=== PATIENT | male | born 1930 | race Caucasian/White ===

== ENCOUNTER 2017-10-15 07:28 | Inpatient (IN) ==
[2017-10-15] MEDS ORDERED: Pantoprazole 40 MG VIAL IVP ONE (07:40)
[2017-10-15] MEDS ORDERED: Aspirin 81 MG TAB.CHEW PO ONE (07:40)
[2017-10-15] MEDS ORDERED: 0.9 % Sodium Chloride 500 ML IVC ONE (07:40)
[2017-10-15] MEDS ORDERED: Nitroglycerin 0.4 MG TAB.SUBL SL ONE (07:40)
[2017-10-15] MEDS ORDERED: GI Cocktail 40 ML EACH PO ONE (07:40)
[2017-10-15] MEDS ORDERED: Ondansetron 4 MG/2 ML VIAL IVP ONE (07:40)
--- NOTE | 2017-10-15 08:18 | Emergency Department Note ---
Disposition Clinical Impression: Choledocholithiasis Pancreatitis Qualifiers: Chronicity: acute Pancreatitis type: biliary Acute pancreatitis complication: unspecified Qualified Code(s): K85.10 - Biliary acute pancreatitis without necrosis or infection Abdominal pain Qualifiers: Abdominal location: right upper quadrant Qualified Code(s): R10.11 - Right upper quadrant pain Disposition: Admitted As Inpatient Condition: Fair Referrals: Francy Martinez MD [Primary Care Provider] - Forms: ED Satisfaction Letter, Work/School Release General Adult HPI - General Chief complaint: ED Abdominal Pain Stated complaint: abd pain Time Seen by Provider: 10/15/17 07:35 Source: patient, family Limitations: no limitations Nursing Notes Reviewed: Yes Vital Signs Reviewed: Yes - History of Present Illness Pain Scale: 8 - Related Data Home Medications Medication Instructions Recorded Confirmed Aspirin [Lo-Dose Aspirin EC] 81 mg PO DAILY 10/15/17 10/15/17 Atorvastatin [Lipitor] 40 mg PO HS 10/15/17 10/15/17 Metoprolol [Lopressor] 25 mg PO DAILY 10/15/17 10/15/17 Allergies Allergy/AdvReac Type Severity Reaction Status Date / Time No Known Allergies Allergy Verified 10/15/17 07:28 Past Medical History - Past Medical History Medical history: Reports: cancer, hyperlipidemia, hypertension, myocardial infarction, renal disease, other Psychiatric history: Reports: no psych history - Social History Smoking Status: Never smoker Smokeless Tobacco Status: No Alcohol use: Reports: none Drug use: Reports: none Physical Exam - General Limitations: no limitations General appearance: alert, in no apparent distress Course Vital Signs Temperature 97.8 F 10/15/17 07:29 Pulse Rate 85 10/15/17 07:29 Respiratory Rate 16 10/15/17 07:29 Blood Pressure 170/87 10/15/17 07:29 O2 Sat by Pulse Oximetry 98 10/15/17 07:29 Temperature 97.8 F 10/15/17 07:29 Pulse Rate 70 10/15/17 09:59 Respiratory Rate 16 10/15/17 09:59 Blood Pressure 129/64 10/15/17 09:59 O2 Sat by Pulse Oximetry 98 10/15/17 09:59 Oxygen Delivery Oxygen Delivery Room Air Medical Decision Making - MDM Narrative Medical decision making narrative: This documentation is done with the assistance of Dragon dictation. There may be inaccuracies in satellite manager or spelling and typographical errors. I have personally performed a face to face evaluation on this patient. I have reviewed and agree with the care plan. History and Exam by me shows: Patient was seen by Fallon Galaviz, the PA, agree with her evaluation and management plan and supervised the care of the patient's stay. Patient has epigastric pain which is resolved he did not fill it went up to his chest he said no neck or back or arm pain. Nonsurgical abdomen no tenderness good pulses distally. Radial cardiac workup and then reassess. He may need admission. He is in agreement with this plan. Chest X-Ray 10/15/17 07:40 IMPRESSION: 1. No acute cardiopulmonary disease. 2. COPD. 3. Status post CABG. D/ / Dalila Dunn MD / Dalila Dunn MD Interpreting Provider: Dalila Dunn MD 0911 hrs.: Troponin is negative. We will discuss with him about admission. 1015 hrs.: Due to his elevated LFTs. I have dedicated OF HIS LIVER AND GALLBLADDER. Chest X-Ray 10/15/17 07:40 IMPRESSION: 1. No acute cardiopulmonary disease. 2. COPD. 3. Status post CABG. D/ / 10/15/2017 09:25:36 Dalila Dunn MD / remy Interpreting Provider: Dalila Dunn MD Gallbladder Ultrasound 10/15/17 09:36 IMPRESSION: 1. Mild prominence of the common bile duct up to 6 mm. An echogenic focus is identified within the duct, possibly representing choledocholithiasis. Consider further evaluation with dedicated MRCP if there is clinical concern or laboratory evidence of biliary obstruction. 2. Cholelithiasis without sonographic evidence of acute cholecystitis. 3. Hepatic steatosis. 4. Pancreas is obscured by overlying bowel gas. D/ / Dalila Dunn MD / Dalila Dunn MD Interpreting Provider: Dalila Dunn MD 1246 hrs.: We will speak to hospitalists onto bring him in the hospital and GI also. Patient's in agreement this plan. 1251 hrs.: GI is not on-call this weekend. Also speak with surgery they may not want to take the patient without GIs coverage. And so we will need to transfer to [place]. Waiting on for call back from 1259 hrs.: Spoke with Dr. Hale who is on for GI, he said he be happy to see the patient; calling hospitalist back for admission. 1302 hrs.: Hospitalist who accepted patient to go ahead and consult GI. Consults are placed. - Lab Data Result diagrams: 10/15/17 08:11 10/15/17 08:11 Lab Results 10/15/17 10/15/17 10/15/17 Range/Units 08:11 08:11 08:11 WBC (4.3-11.1) K/mcL RBC (4.19-5.50) M/mcL Hgb (12.9-16.9) g/dL Hct (37.5-50.1) % MCV (83.0-100.0) fL MCH (28.0-33.3) pg MCHC (31.6-35.5) g/dL RDW (11.5-14.5) % Plt Count (140-400) K/mcL MPV (9.4-12.4) fL Immature Gran % (0-4) % Seg Neutrophils % % Lymphocytes % % Monocytes % % Eosinophils % % Basophils % % Neutrophils # (1.6-8.9) K/mcL Lymphocytes # (0.6-4.6) K/mcL Monocytes # (0.0-1.3) K/mcL Eosinophils # (0.0-0.6) K/mcL Basophils # (0.0-0.2) K/mcL PT 11.3 (9.4-12.1) Seconds INR 1.1 APTT 29.5 (26.0-36.0) Seconds Sodium 139 (136-145) mEq/L Potassium 4.4 (3.5-5.1) mEq/L Chloride 105 (98-107) mEq/L Carbon Dioxide 29 (23-29) mEq/L BUN 15 (8-23) mg/dL Creatinine 0.81 (0.70-1.30) mg/dL Est GFR ( Amer) > 60 (> 60) Est GFR (Non-Af Amer) > 60 (> 60) BUN/Creatinine Ratio 19 (6-26) Glucose 131 H (70-105) mg/dL Calculated Osmolality 291 (280-300) Calcium 9.4 (8.6-10.3) mg/dL Total Bilirubin 1.5 H (0.3-1.0) mg/dL AST 279 H (13-39) Units/L ALT 228 H (7-52) Units/L Alkaline Phosphatase 80 (34-104) Units/L Troponin I (< 0.04) ng/mL Serum Total Protein 7.3 (6.4-8.9) g/dL Albumin 4.1 (3.5-5.7) g/dL Globulin 3.2 (2.4-3.5) g/dL Albumin/Globulin Ratio 1.3 (1.1-2.2) Lipase 1543 H (11-82) Units/L 10/15/17 10/15/17 Range/Units 08:11 08:11 WBC 7.5 (4.3-11.1) K/mcL RBC 4.60 (4.19-5.50) M/mcL Hgb 14.5 (12.9-16.9) g/dL Hct 43.8 (37.5-50.1) % MCV 95.2 (83.0-100.0) fL MCH 31.5 (28.0-33.3) pg MCHC 33.1 (31.6-35.5) g/dL RDW 13.6 (11.5-14.5) % Plt Count 158 (140-400) K/mcL MPV 9.2 L (9.4-12.4) fL Immature Gran % 0.1 (0-4) % Seg Neutrophils % 79.9 % Lymphocytes % 8.2 % Monocytes % 5.6 % Eosinophils % 5.8 % Basophils % 0.4 % Neutrophils # 6.0 (1.6-8.9) K/mcL Lymphocytes # 0.6 (0.6-4.6) K/mcL Monocytes # 0.4 (0.0-1.3) K/mcL Eosinophils # 0.4 (0.0-0.6) K/mcL Basophils # 0.0 (0.0-0.2) K/mcL PT (9.4-12.1) Seconds INR APTT (26.0-36.0) Seconds Sodium (136-145) mEq/L Potassium (3.5-5.1) mEq/L Chloride (98-107) mEq/L Carbon Dioxide (23-29) mEq/L BUN (8-23) mg/dL Creatinine (0.70-1.30) mg/dL Est GFR ( Amer) (> 60) Est GFR (Non-Af Amer) (> 60) BUN/Creatinine Ratio (6-26) Glucose (70-105) mg/dL Calculated Osmolality (280-300) Calcium (8.6-10.3) mg/dL Total Bilirubin (0.3-1.0) mg/dL AST (13-39) Units/L ALT (7-52) Units/L Alkaline Phosphatase (34-104) Units/L Troponin I < 0.03 (< 0.04) ng/mL Serum Total Protein (6.4-8.9) g/dL Albumin (3.5-5.7) g/dL Globulin (2.4-3.5) g/dL Albumin/Globulin Ratio (1.1-2.2) Lipase (11-82) Units/L
[2017-10-15 08:23] LABS: Basophils % 0.4 %; Eosinophils # 0.4 K/mcL (0.0-0.6); Eosinophils % 5.8 %; Hematocrit 43.8 % (37.5-50.1); Hemoglobin 14.5 g/dL (12.9-16.9); Immature Granulocytes % 0.1 % (0-4); Lymphocytes # 0.6 K/mcL (0.6-4.6); Lymphocytes % 8.2 %; Mean Corpuscular HGB Conc 33.1 g/dL (31.6-35.5); Mean Corpuscular Hemoglobin 31.5 pg (28.0-33.3); Mean Corpuscular Volume 95.2 fL (83.0-100.0); Mean Platelet Volume 9.2 fL (9.4-12.4); Monocytes # 0.4 K/mcL (0.0-1.3); Monocytes % 5.6 %; Platelet Count 158 K/mcL (140-400); Red Cell Distribution Width 13.6 % (11.5-14.5); Segmented Neutrophils % 79.9 %
[2017-10-15 08:28] LABS: INR 1.1; Prothrombin Time 11.3 Seconds (9.4-12.1)
[2017-10-15 08:31] LABS: Activated Partial Thrombo Time 29.5 Seconds (26.0-36.0)
[2017-10-15 08:59] LABS: Alanine Aminotransferase 228 Units/L (7-52); Albumin 4.1 g/dL (3.5-5.7); Albumin/Globulin Ratio 1.3 (1.1-2.2); Alkaline Phosphatase 80 Units/L (34-104); Aspartate Amino Transferase 279 Units/L (13-39); BUN/Creatinine Ratio 19 (6-26); Bilirubin,Total 1.5 mg/dL (0.3-1.0); Blood Urea Nitrogen 15 mg/dL (8-23); Calcium 9.4 mg/dL (8.6-10.3); Carbon Dioxide 29 mEq/L (23-29); Chloride 105 mEq/L (98-107); Globulin 3.2 g/dL (2.4-3.5); Glucose 131 mg/dL (70-105); Osmolality,Calculated 291 (280-300); Potassium 4.4 mEq/L (3.5-5.1); Sodium 139 mEq/L (136-145); Total Protein 7.3 g/dL (6.4-8.9); eGFR For African Americans > 60 (> 60); eGFR For Non-African Americans > 60 (> 60)
--- NOTE | 2017-10-15 09:42 | Emergency Department Note ---
Disposition Clinical Impression: Pancreatitis Qualifiers: Chronicity: acute Pancreatitis type: biliary Acute pancreatitis complication: unspecified Qualified Code(s): K85.10 - Biliary acute pancreatitis without necrosis or infection Disposition: Admitted As Inpatient Condition: Fair Referrals: Francy Martinez MD [Primary Care Provider] - Forms: ED Satisfaction Letter, Work/School Release Abdominal Pain HPI - General Chief Complaint: ED Abdominal Pain Stated Complaint: abd pain Time Seen by Provider: 10/15/17 07:35 Source: patient, family Mode of arrival: private vehicle Limitations: no limitations Nursing Notes Reviewed: Yes Vital Signs Reviewed: Yes - History of Present Illness Pt Subjective Complaint: abdominal pain Onset (ago): hour(s) Consistency: constant, Improving Location: epigastric Pain Severity: moderate, severe Pain Scale: 8 Quality: stabbing, sharp, burning Radiation: chest Migration to: no migration Improves with: other ("Time") Worsens with: nothing Context: other (Unknown) Associated symptoms: Reports: nausea. Denies: vomiting ("Wanted to vomit but couldn't"), diarrhea, fever, chills, constipation, dysuria, hematemesis, hematochezia, melena, hematuria, anorexia, syncope Treatments prior to arrival: none - Related Data Home Medications Medication Instructions Recorded Confirmed Aspirin [Lo-Dose Aspirin EC] 81 mg PO DAILY 10/15/17 10/15/17 Atorvastatin [Lipitor] 40 mg PO HS 10/15/17 10/15/17 Metoprolol [Lopressor] 25 mg PO DAILY 10/15/17 10/15/17 Allergies Allergy/AdvReac Type Severity Reaction Status Date / Time No Known Allergies Allergy Verified 10/15/17 07:28 All systems ED: reviewed and negative except as stated. Review of Systems: As Per HPI Constitutional: Denies: fever, chills, weakness Cardiovascular: Denies: chest pain, palpitations Respiratory: Denies: cough, dyspnea, wheezes Gastrointestinal: Reports: as per HPI, abdominal pain, nausea. Denies: vomiting , diarrhea, constipation, hematemesis, melena, hematochezia Genitourinary: Denies: dysuria Musculoskeletal: Denies: back pain, joint swelling, arthralgia Integumentary: Denies: rash Neurological: Denies: headache, weakness, confusion Endocrine: Denies: fatigue Hematological/Lymphatic: Denies: easy bleeding, easy bruising Abdominal Pain PMH - Past Medical History Medical history: Reports: cancer, hyperlipidemia, hypertension, myocardial infarction, renal disease, other Male Surgical History: Reports: coronary bypass (CABG), other Psychiatric history: Reports: no psych history - Social History Smoking status: Never smoker Alcohol use: Reports: none Drug use: Reports: none Physical Exam - General Limitations: no limitations General appearance: alert, in no apparent distress - Head Head exam: atraumatic, normocephalic, normal inspection - Eye Eye exam: Present: normal appearance, PERRL. Absent: scleral icterus, conjunctival injection, periorbital swelling - ENT ENT exam: mucous membranes moist - Neck Neck exam: Present: normal inspection, full ROM, trachea midline. Absent: meningismus - Chest Chest inspection: Present: normal inspection - Respiratory Respiratory exam: Present: normal lung sounds bilaterally. Absent: respiratory distress, wheezes, stridor, accessory muscle use - Cardiovascular Cardiovascular exam: Present: regular rate, normal rhythm - Abdominal Exam Abdominal exam: Present: soft, tenderness, normal bowel sounds. Absent: distention, guarding, rebound, rigidity, organomegaly, ascites, mass, pulsatile mass Abdominal tenderness: Present: RUQ, mild - Extremities Exam Extremities exam: Present: normal inspection, normal capillary refill. Absent: pedal edema - Neurological Exam Neurological exam: Present: alert, oriented X3, CN II-XII intact, normal gait - Psychiatric Psychiatric exam: Present: normal affect, normal mood - Skin Skin exam: Present: warm, dry, intact, normal color Course Course Narrative: Patient presents from home with family for evaluation of epigastric pain and nausea since last night. He denies chest pain, trouble breathing, fever, chills , vomiting, or any bowel complaints. He states that the pain has "eased up a lot " since arriving here. He denies recent changes in medications or activity. On exam he is hypertensive, afebrile, heart rate normal. Abdomen is soft, non- distended with mild tenderness in the RUQ. No guarding or rebound tenderness. EKG, labs and meds have been ordered. Patient NPO EKG shows normal sinus rhythm with anteroseptal MS of indeterminate age; T-wave inversions in V1 and V2. Labs show a normal troponin, elevated LFT's and T-bili, otherwise normal. Meds helped relieve remaining discomfort and nausea. U/S ordered. Case discussed with Dr. Iqbal. He has had face to face time with the patient and agrees with the assessment and plan. Ddx: ACS, Gastritis, pancreatitis, pneumonia, enteritis, colitis. Troponin is normal. CXR normal. LFT's and lipase elevated. RUQ U/S ordered. Patient is pain free. RUQ u/s shows choledocolithiasis. Hospitalist paged. Dr. Finn requests that Dr. Hale be consulted. If Dr. Hale will come in to do the ERCP, then patient can stay here. If not, patient will need to be transferred. Vital Signs Temperature 97.8 F 10/15/17 07:29 Pulse Rate 85 10/15/17 07:29 Respiratory Rate 16 10/15/17 07:29 Blood Pressure 170/87 10/15/17 07:29 O2 Sat by Pulse Oximetry 98 10/15/17 07:29 Temperature 97.8 F 10/15/17 07:29 Pulse Rate 20 10/15/17 08:53 Respiratory Rate 12 10/15/17 08:53 Blood Pressure 128/69 10/15/17 08:53 O2 Sat by Pulse Oximetry 95 10/15/17 08:53 Oxygen Delivery Oxygen Delivery Room Air Abdominal Pain - Lab Data Result diagrams: 10/15/17 08:11 10/15/17 08:11 Lab Results 10/15/17 10/15/17 10/15/17 Range/Units 08:11 08:11 08:11 WBC 7.5 (4.3-11.1) K/mcL RBC 4.60 (4.19-5.50) M/mcL Hgb 14.5 (12.9-16.9) g/dL Hct 43.8 (37.5-50.1) % MCV 95.2 (83.0-100.0) fL MCH 31.5 (28.0-33.3) pg MCHC 33.1 (31.6-35.5) g/dL RDW 13.6 (11.5-14.5) % Plt Count 158 (140-400) K/mcL MPV 9.2 L (9.4-12.4) fL Immature Gran % 0.1 (0-4) % Seg Neutrophils % 79.9 % Lymphocytes % 8.2 % Monocytes % 5.6 % Eosinophils % 5.8 % Basophils % 0.4 % Neutrophils # 6.0 (1.6-8.9) K/mcL Lymphocytes # 0.6 (0.6-4.6) K/mcL Monocytes # 0.4 (0.0-1.3) K/mcL Eosinophils # 0.4 (0.0-0.6) K/mcL Basophils # 0.0 (0.0-0.2) K/mcL PT 11.3 (9.4-12.1) Seconds INR 1.1 APTT 29.5 (26.0-36.0) Seconds Sodium 139 (136-145) mEq/L Potassium 4.4 (3.5-5.1) mEq/L Chloride 105 (98-107) mEq/L Carbon Dioxide 29 (23-29) mEq/L BUN 15 (8-23) mg/dL Creatinine 0.81 (0.70-1.30) mg/dL Est GFR ( Amer) > 60 (> 60) Est GFR (Non-Af Amer) > 60 (> 60) BUN/Creatinine Ratio 19 (6-26) Glucose 131 H (70-105) mg/dL Calculated Osmolality 291 (280-300) Calcium 9.4 (8.6-10.3) mg/dL Total Bilirubin 1.5 H (0.3-1.0) mg/dL AST 279 H (13-39) Units/L ALT 228 H (7-52) Units/L Alkaline Phosphatase 80 (34-104) Units/L Troponin I (< 0.04) ng/mL Serum Total Protein 7.3 (6.4-8.9) g/dL Albumin 4.1 (3.5-5.7) g/dL Globulin 3.2 (2.4-3.5) g/dL Albumin/Globulin Ratio 1.3 (1.1-2.2) 10/15/17 Range/Units 08:11 WBC (4.3-11.1) K/mcL RBC (4.19-5.50) M/mcL Hgb (12.9-16.9) g/dL Hct (37.5-50.1) % MCV (83.0-100.0) fL MCH (28.0-33.3) pg MCHC (31.6-35.5) g/dL RDW (11.5-14.5) % Plt Count (140-400) K/mcL MPV (9.4-12.4) fL Immature Gran % (0-4) % Seg Neutrophils % % Lymphocytes % % Monocytes % % Eosinophils % % Basophils % % Neutrophils # (1.6-8.9) K/mcL Lymphocytes # (0.6-4.6) K/mcL Monocytes # (0.0-1.3) K/mcL Eosinophils # (0.0-0.6) K/mcL Basophils # (0.0-0.2) K/mcL PT (9.4-12.1) Seconds INR APTT (26.0-36.0) Seconds Sodium (136-145) mEq/L Potassium (3.5-5.1) mEq/L Chloride (98-107) mEq/L Carbon Dioxide (23-29) mEq/L BUN (8-23) mg/dL Creatinine (0.70-1.30) mg/dL Est GFR ( Amer) (> 60) Est GFR (Non-Af Amer) (> 60) BUN/Creatinine Ratio (6-26) Glucose (70-105) mg/dL Calculated Osmolality (280-300) Calcium (8.6-10.3) mg/dL Total Bilirubin (0.3-1.0) mg/dL AST (13-39) Units/L ALT (7-52) Units/L Alkaline Phosphatase (34-104) Units/L Troponin I < 0.03 (< 0.04) ng/mL Serum Total Protein (6.4-8.9) g/dL Albumin (3.5-5.7) g/dL Globulin (2.4-3.5) g/dL Albumin/Globulin Ratio (1.1-2.2)
[2017-10-15] MEDS ORDERED: *HR* FentaNYL (PF) 100 MCG/2 ML VIAL IVP PRN (13:09)
--- NOTE | 2017-10-15 13:16 | Internal Med History&Physical ---
Date of Encounter: 10/15/17 Time of Encounter: 12:50 Assessment and Plan (1) Abdominal pain Current visit: Yes Status: Acute Secondary to choledocholithiasis and acute GS pancreatitis Keep NPO Continue Fantanyl and Toradol Continue IVFs (NS @ 125 ml/hr) Empirically start Unasyn GI, Dr. Hale, was called by ER attending and per report will come in to see him today. Surgery was also called by ER to discuss case. If emmergent surgery needed we will call back and officially consult Hemodynamically stable VSS Qualifiers: Abdominal location: right upper quadrant Qualified Code(s): R10.11 - Right upper quadrant pain (2) Choledocholithiasis Current visit: Yes Status: Acute U/S shows possible stone in CBD with associated elevated liver and pancreatic enzymes. GI called and he will likely need an ERCP (3) Pancreatitis Current visit: Yes Status: Acute Continue NPO Continue current pain mgt GI called Possible ERCP today Qualifiers: Chronicity: acute Pancreatitis type: biliary Acute pancreatitis complication: unspecified Qualified Code(s): K85.10 - Biliary acute pancreatitis without necrosis or infection (4) CAD (coronary artery disease) Current visit: No Status: Chronic Continue aspirin Hold statin secondary to elevated liver enymes Continue BB Qualifiers: Coronary Disease-Associated Artery/Lesion type: [place] artery [place] vs. transplanted heart: [place] heart Associated angina: without angina Qualified Code(s): I25.10 - Atherosclerotic heart disease of [place] coronary artery without angina pectoris Internal Medicine - H&P: HPI Chief complaint: Abdominal pain History of present illness: Relatively healthy 87 yr old man with PMH of CAD s/p 3vCABG, COPD and HTN who presnted in the ER this am c.o RUQ and epigastric abdominal pain with Nausea nut no vomiting. He states that he had a spicy meal last evening and woke up with the pain described above. His liver and pancreatic enzymes are significantly elevated and a RUQ U/S shows what appears to be a possible stone in the CBD. There is no evidence of acute cholecystitis. His symptoms are well controlled now and he is hemodynamically stable. He will be admitted for choledocholithiasis and likely GS pancreatits. GI and Surgery were both called by the ER attending, GI will see him today. Past Med Surg Social Fam HX - Past Medical History Medical history: cancer, hyperlipidemia, hypertension, myocardial infarction, renal disease, other Psychiatric history: no psych history - Social History Smoking Status: Never smoker Smokeless Tobacco Status: No Alcohol use: none Drug use: none Internal Medicine - H&P: Meds Aspirin [Lo-Dose Aspirin EC] 81 mg PO DAILY 10/15/17 [History] Atorvastatin [Lipitor] 40 mg PO HS 10/15/17 [History] Metoprolol [Lopressor] 25 mg PO DAILY 10/15/17 [History] 3 Allergy/AdvReac Type Severity Reaction Status Date / Time No Known Allergies Allergy Verified 10/15/17 07:28 All Systems PM: A 10-system review of systems was performed and is negative for pertinent findings except as documented above in the HPI. - Constitutional Constitutional: as per HPI, weight loss, no chills, no excessive sweating, no fever(s), no falls, no lethargy, no malaise, no night sweats - EENT Eyes: no diplopia, no discharge Nose, mouth and throat: as per HPI, no bleeding gums, no dry mouth, no dysphagia , no epistaxis, no mouth lesions, no odynophagia - Cardiovascular Cardiovascular ROS IM: no chest pain, no diaphoresis, no dyspnea, no edema, no irregular heart rhythm, no lightheadedness, no palpitations - Respiratory Respiratory: no cough, no dyspnea, no hemoptysis, no wheezing, no stridor, no pain on inspiration - Genitourinary Genitourinary ROS male: no urinary frequency, no urinary hesitancy, no urinary urgency - Musculoskeletal Musculoskeletal ROS IM: no back pain, no muscle weakness, no numbness, no tingling - Integumentary Integumentary IM: no rash, no jaundice - Neurological Neurological ROS: no confusion, no convulsions, no disequilibrium - Endocrine Endocrine IM: as per HPI, no polyphagia, no polyuria - Constitutional Vitals: Temp Pulse Resp BP Pulse Ox 97.8 F 70 16 129/64 98 10/15/17 07:29 10/15/17 09:59 10/15/17 09:59 10/15/17 09:59 10/15/17 09:59 General appearance: Present: A&O X 3, no acute distress, underweight - Head Head exam: Present: atraumatic, normocephalic - Eye Eye exam: Present: EOMI, PERRL, conjuntiva pink, sclera anicteric Pupils: Present: PERRL - Neck Neck exam general surgery: Present: supple, trachea midline. Absent: lymphadenopathy - Respiratory Respiratory exam: Present: CTAB. Absent: accessory muscle use, rales, rhonchi, wheezes - Cardiovascular Cardiovascular exam: Present: RRR, +S1, +S2. Absent: diastolic murmur, gallop, rubs, systolic murmur - GI/Abdominal GI/Abdominal exam: Present: guarding, hypoactive bowel sounds, soft, no peritoneal signs. Absent: distended, rebound, rigid, splenomegaly, tenderness - Extremities Exam Extremities exam: Present: warm, radial pulses palpable and symmetrical. Absent : calf tenderness, cyanotic, pedal edema - Neurological Exam Neurological exam: Present: CN II-XII intact, oriented X3, no focal deficits. Absent: pronater drift, facial droop, speech deficit - Psychiatric Psychiatric exam: Absent: homicidal ideation, suicidal ideation - Skin Skin exam: Present: dry, intact, warm. Absent: mottled, pallor, rash Internal Med - H&P Results - Labs CBC & Chem 7: 10/15/17 08:11 10/15/17 08:11 Labs: Short CBC 10/15/17 Range/Units 08:11 WBC 7.5 (4.3-11.1) K/mcL Hgb 14.5 (12.9-16.9) g/dL Hct 43.8 (37.5-50.1) % Plt Count 158 (140-400) K/mcL Neutrophils # 6.0 (1.6-8.9) K/mcL BMP 10/15/17 08:11 Sodium 139 Potassium 4.4 Chloride 105 Carbon Dioxide 29 BUN 15 Creatinine 0.81 Glucose 131 H Calcium 9.4 Cardiac Enzymes 10/15/17 Range/Units 08:11 Troponin I < 0.03 (< 0.04) ng/mL Liver Function 10/15/17 Range/Units 08:11 Total Bilirubin 1.5 H (0.3-1.0) mg/dL AST 279 H (13-39) Units/L ALT 228 H (7-52) Units/L Alkaline Phosphatase 80 (34-104) Units/L Albumin 4.1 (3.5-5.7) g/dL - Impressions ITS Impressions Chest X-Ray 10/15/17 07:40 IMPRESSION: 1. No acute cardiopulmonary disease. 2. COPD. 3. Status post CABG. D/ / 10/15/2017 09:25:36 Dlaila Dunn MD / remy Interpreting Provider: Dalila Dunn MD Gallbladder Ultrasound 10/15/17 09:36 IMPRESSION: 1. Mild prominence of the common bile duct up to 6 mm. An echogenic focus is identified within the duct, possibly representing choledocholithiasis. Consider further evaluation with dedicated MRCP if there is clinical concern or laboratory evidence of biliary obstruction. 2. Cholelithiasis without sonographic evidence of acute cholecystitis. 3. Hepatic steatosis. 4. Pancreas is obscured by overlying bowel gas. D/ / 10/15/2017 12:45:43 Dalila Dunn MD / karyn Interpreting Provider: Dalila Dunn MD
[2017-10-15] MEDS: 0.9 % Sodium Chloride 1,000 ML IVC SCH (15:48)
[2017-10-15] MEDS: Ampicillin/Sulbactam 3,000 MG in 0.9 % Sodium Chloride Mini Bag 100 ML IVPB SCH (19:30)
[2017-10-15] MEDS: Ketorolac 15 MG/ML VIAL IVP SCH (19:45)
[2017-10-16] MEDS: 0.9 % Sodium Chloride 1,000 ML IVC SCH ×4 (00:36→23:05)
[2017-10-16] MEDS: Ketorolac 15 MG/ML VIAL IVP SCH ×3 (00:37→05:39)
[2017-10-16] MEDS: Ampicillin/Sulbactam 3,000 MG in 0.9 % Sodium Chloride Mini Bag 100 ML IVPB SCH ×5 (00:37→23:05)
[2017-10-16 07:33] LABS: Basophils % 0.8 %; Eosinophils # 1.8 K/mcL (0.0-0.6); Eosinophils % 35.3 %; Immature Granulocytes % 0.2 % (0-4); Lymphocytes % 18.5 %; Mean Corpuscular HGB Conc 32.7 g/dL (31.6-35.5); Mean Corpuscular Hemoglobin 31.3 pg (28.0-33.3); Mean Corpuscular Volume 95.9 fL (83.0-100.0); Mean Platelet Volume 9.7 fL (9.4-12.4); Monocytes # 0.3 K/mcL (0.0-1.3); Monocytes % 6.6 %; Platelet Count 133 K/mcL (140-400); Red Blood Count 3.86 M/mcL (4.19-5.50); Red Cell Distribution Width 13.8 % (11.5-14.5); Segmented Neutrophils % 38.6 %
[2017-10-16] MEDS ORDERED: Ketorolac 15 MG/ML VIAL IVP PRN (08:47)
[2017-10-16 08:52] LABS: Alanine Aminotransferase 499 Units/L (7-52); Albumin 3.4 g/dL (3.5-5.7); Albumin/Globulin Ratio 1.3 (1.1-2.2); Alkaline Phosphatase 115 Units/L (34-104); Aspartate Amino Transferase 356 Units/L (13-39); BUN/Creatinine Ratio 13 (6-26); Bilirubin,Total 1.6 mg/dL (0.3-1.0); Blood Urea Nitrogen 11 mg/dL (8-23); Calcium 8.5 mg/dL (8.6-10.3); Carbon Dioxide 27 mEq/L (23-29); Chloride 111 mEq/L (98-107); Globulin 2.6 g/dL (2.4-3.5); Glucose 94 mg/dL (70-105); Lipase 36 Units/L (11-82); Osmolality,Calculated 289 (280-300); Potassium 4.4 mEq/L (3.5-5.1); Sodium 140 mEq/L (136-145); eGFR For African Americans > 60 (> 60); eGFR For Non-African Americans > 60 (> 60)
[2017-10-16] MEDS: Aspirin Enteric Coated 81 MG Tablet PO SCH (08:56)
[2017-10-16 09:28] LABS: Hemoglobin 12.1 g/dL (12.9-16.9)
--- NOTE | 2017-10-16 10:05 | General Surgery Consult Note ---
Date of Encounter: 10/17/17 Time of Encounter: 10:00 Assessment and Plan (1) Choledocholithiasis Current Visit: Yes Status: Acute Plan for laparoscopic cholecystectomy with cholangiogram. If he continues to have a stone in the common bile duct then gastroenterology may perform ERCP after surgery. History of Present Illness History of present illness: This is an 87-year-old male presents to the hospital with abdominal pain. He was found to have an elevated bilirubin 1.5 as well as increase in his lipase. It appears he has a gallstone pancreatitis. He was admitted to hospitalist with plans for potential ERCP. However after discussing the case with gastroenterology, they feel may be more prudent just to proceed with surgery and perform a cholangiogram. If he has a stone within the common bile duct and may consider ERCP after surgery. Past Med Surg Social Fam HX - Past Medical History Medical history: cancer, hyperlipidemia, hypertension, myocardial infarction, renal disease, other Psychiatric history: no psych history - Social History Smoking Status: Never smoker Smokeless Tobacco Status: No Alcohol use: none Drug use: none - Family History Father Age at : 89 Cause of : natural causes Hx Family Cardiac Disorders: Yes Mother Age at : 60 Cause of : Heart attack Medications and Allergies Aspirin [Lo-Dose Aspirin EC] 81 mg PO DAILY 10/15/17 [History] Atorvastatin [Lipitor] 40 mg PO HS 10/15/17 [History] Metoprolol [Lopressor] 25 mg PO DAILY 10/15/17 [History] 3 Allergy/AdvReac Type Severity Reaction Status Date / Time No Known Allergies Allergy Verified 10/15/17 07:28 Review of Systems All systems PM: reviewed and no additional remarkable complaints except as stated All systems PM: A 10-system review of systems was performed and is negative for pertinent findings except as documented above in the HPI. General Surgery Exam Initial Vital Signs Temp Pulse Resp BP Pulse Ox 97.8 F 85 16 170/87 98 10/15/17 07:29 10/15/17 07:29 10/15/17 07:29 10/15/17 07:29 10/15/17 07:29 - Eyes PERRL - ENT normal nares, normal mucosa, Other (Significant hearing loss) - Neck trachea midline, no venous distension - Respiratory normal expansion, normal respiratory effort - Cardiovascular Cardiovascular exam: Present: RRR - Abdomen Abdomen general surgery: Present: soft, tender Abdominal Tenderness: Present: RUQ - Integumentary Integumentary general surgery: Present: warm and dry, no abnormal pigmentation - Neurologic Present: CN 2-12 grossly intact, normal sensation - Musculoskeletal Present: normal gait, normal posture - Psychiatric Psychiatric general surgery: Present: A&Ox3, speech is normal Exam Initial Vital Signs Temp Pulse Resp BP Pulse Ox 97.8 F 85 16 170/87 98 10/15/17 07:29 10/15/17 07:29 10/15/17 07:29 10/15/17 07:29 10/15/17 07:29 Results - Labs 10/17/17 04:47 10/17/17 04:47 Abnormal lab results RBC 3.86 M/mcL (4.19-5.50) L 10/16/17 06:49 Hgb 12.1 g/dL (12.9-16.9) L D 10/16/17 06:49 Hct 37.0 % (37.5-50.1) L 10/16/17 06:49 Plt Count 133 K/mcL (140-400) L 10/16/17 06:49 Eosinophils # 1.8 K/mcL (0.0-0.6) H 10/16/17 06:49 Chloride 111 mEq/L (98-107) H 10/16/17 06:49 Calcium 8.5 mg/dL (8.6-10.3) L 10/16/17 06:49 Total Bilirubin 1.6 mg/dL (0.3-1.0) H 10/16/17 06:49 AST 356 Units/L (13-39) H 10/16/17 06:49 ALT 499 Units/L (7-52) H 10/16/17 06:49 Alkaline Phosphatase 115 Units/L (34-104) H 10/16/17 06:49 Serum Total Protein 6.0 g/dL (6.4-8.9) L 10/16/17 06:49 Albumin 3.4 g/dL (3.5-5.7) L 10/16/17 06:49 Diabetes panel 10/16/17 Range/Units 06:49 Sodium 140 (136-145) mEq/L Potassium 4.4 (3.5-5.1) mEq/L Chloride 111 H (98-107) mEq/L Carbon Dioxide 27 (23-29) mEq/L BUN 11 (8-23) mg/dL Creatinine 0.83 (0.70-1.30) mg/dL Glucose 94 (70-105) mg/dL Calcium 8.5 L (8.6-10.3) mg/dL AST 356 H (13-39) Units/L ALT 499 H (7-52) Units/L Alkaline Phosphatase 115 H (34-104) Units/L Albumin 3.4 L (3.5-5.7) g/dL Calcium panel 10/16/17 Range/Units 06:49 Calcium 8.5 L (8.6-10.3) mg/dL Albumin 3.4 L (3.5-5.7) g/dL Pituitary panel 10/16/17 Range/Units 06:49 Sodium 140 (136-145) mEq/L Potassium 4.4 (3.5-5.1) mEq/L Chloride 111 H (98-107) mEq/L Carbon Dioxide 27 (23-29) mEq/L BUN 11 (8-23) mg/dL Creatinine 0.83 (0.70-1.30) mg/dL Glucose 94 (70-105) mg/dL Calcium 8.5 L (8.6-10.3) mg/dL Adrenal panel 10/16/17 Range/Units 06:49 Sodium 140 (136-145) mEq/L Potassium 4.4 (3.5-5.1) mEq/L Chloride 111 H (98-107) mEq/L Carbon Dioxide 27 (23-29) mEq/L BUN 11 (8-23) mg/dL Creatinine 0.83 (0.70-1.30) mg/dL Glucose 94 (70-105) mg/dL Calcium 8.5 L (8.6-10.3) mg/dL Total Bilirubin 1.6 H (0.3-1.0) mg/dL AST 356 H (13-39) Units/L ALT 499 H (7-52) Units/L Alkaline Phosphatase 115 H (34-104) Units/L Albumin 3.4 L (3.5-5.7) g/dL All other labs normal. - Imaging CT scan - abdomen: image reviewed CT scan - pelvis: image reviewed Consult Discharge Plan - Plan Referrals: Francy Martinez MD [Primary Care Provider] -
--- NOTE | 2017-10-16 14:32 | Internal Med Progress Note ---
Date of Encounter: 10/16/17 Time of Encounter: 14:29 - Assessment and plan (1) Abdominal pain Current Visit: Yes Status: Acute Assessment and plan: Likely secondary to cholecystitis diagnosis acute gallstone pancreatitis He remains nothing by mouth for the OR Continue fentanyl and Toradol for pain Continue IV fluids Unasyn IV Dr. Hale senior construction manager does not plan to do an ERCP and actually notified the surgeon that the patient needed surgery He has been hemodynamically stable with stable vital signs Qualifiers: Abdominal location: right upper quadrant Qualified Code(s): R10.11 - Right upper quadrant pain (2) Choledocholithiasis Current Visit: Yes Status: Acute Assessment and plan: Ultrasound showed possible stone in the common bile duct with associated elevated liver and pancreatic enzymes. GI was called and will not do an ERCP. They notified general surgery that he needed to have a cholecystectomy. That has been planned for later today (3) Pancreatitis Current Visit: Yes Status: Acute Assessment and plan: Remains nothing by mouth for the OR Continue current pain management Cholecystectomy later today Trend labs in the a.m. Qualifiers: Chronicity: acute Pancreatitis type: biliary Acute pancreatitis complication: unspecified Qualified Code(s): K85.10 - Biliary acute pancreatitis without necrosis or infection (4) CAD (coronary artery disease) Current Visit: No Status: Chronic Assessment and plan: Tinea aspirin on discharge for hold statin secondary to elevated liver enzymes but continue the beta chuck Qualifiers: Coronary Disease-Associated Artery/Lesion type: [place] artery [place] vs. transplanted heart: [place] heart Associated angina: without angina Qualified Code(s): I25.10 - Atherosclerotic heart disease of [place] coronary artery without angina pectoris (5) DVT prophylaxis Current Visit: Yes Status: Acute Assessment and plan: scds - Subjective Interval history: Patient is lying in the bed in no distress. He had multiple questions regarding his cholecystectomy to be done later today. He states his pain is gone. He wants to know when he will be able to eat and how soon after surgery he can go home. He has no fever, chills, chest pain, shortness of breath, diarrhea, abdominal pain unless you push on it or changes in bowel or bladder. - Constitutional Vitals: Temp Pulse Resp BP Pulse Ox 98 F 63 16 166/83 96 10/16/17 11:49 10/16/17 11:49 10/16/17 11:49 10/16/17 11:49 10/16/17 11:49 General appearance: Present: cooperative, A&O X 3, pleasant, no acute distress, underweight - Head Head exam: Present: atraumatic, normocephalic - Eye Eye exam: Present: PERRL, conjuntiva pink, sclera anicteric Pupils: Present: PERRL - Neck Neck exam general surgery: Present: supple, trachea midline. Absent: lymphadenopathy - Respiratory Respiratory exam: Present: CTAB. Absent: accessory muscle use, rales, rhonchi, wheezes - Cardiovascular Cardiovascular exam: Present: RRR, +S1, +S2. Absent: diastolic murmur, gallop, rubs, systolic murmur - GI/Abdominal GI/Abdominal exam: Present: normal bowel sounds, soft, no peritoneal signs. Absent: distended, tenderness Additional comments: Tender right upper quadrant to palpation - Extremities Exam Extremities exam: Present: warm, radial pulses palpable and symmetrical. Absent : calf tenderness, cyanotic, pedal edema - Neurological Exam Neurological exam: Present: CN II-XII intact, oriented X3, no focal deficits. Absent: pronater drift, facial droop, speech deficit - Skin Skin exam: Present: dry, intact, warm Internal Medicine: Result - Labs CBC & Chem 7: 10/16/17 06:49 10/16/17 06:49 Labs: Short CBC 10/16/17 Range/Units 06:49 WBC 5.2 (4.3-11.1) K/mcL Hgb 12.1 L D (12.9-16.9) g/dL Hct 37.0 L (37.5-50.1) % Plt Count 133 L (140-400) K/mcL Neutrophils # 2.0 (1.6-8.9) K/mcL BMP 10/16/17 06:49 Sodium 140 Potassium 4.4 Chloride 111 H Carbon Dioxide 27 BUN 11 Creatinine 0.83 Glucose 94 Calcium 8.5 L Liver Function 10/16/17 Range/Units 06:49 Total Bilirubin 1.6 H (0.3-1.0) mg/dL AST 356 H (13-39) Units/L ALT 499 H (7-52) Units/L Alkaline Phosphatase 115 H (34-104) Units/L Albumin 3.4 L (3.5-5.7) g/dL - ABG Interpretation ABG results: PT/INR, D-dimer PT 11.3 Seconds (9.4-12.1) 10/15/17 08:11 Consult Discharge Plan - Plan Referrals: Francy Martinez MD [Primary Care Provider] -
[2017-10-16] MEDS ORDERED: Acetaminophen IV 1,000 MG/100 ML INFUS..BTL IVPB ONE (16:02)
[2017-10-16] MEDS ORDERED: Famotidine 20 MG/2 ML VIAL IVP ONE (16:02)
[2017-10-16] MEDS ORDERED: *HR* Propofol 200 MG/20 ML VIAL IVP ONE (16:42)
[2017-10-16] MEDS ORDERED: *HR* FentaNYL (PF) 100 MCG/2 ML VIAL ONE (16:42)
[2017-10-16] MEDS ORDERED: Isovue-300 50 ML VIAL IVP ONE (16:51)
--- NOTE | 2017-10-16 16:58 | Anesthesia Evaluation PreOp ---
Date of Encounter: 10/16/17 Time of Encounter: 17:00 - Past History Planned Operation: Lap Cholecystectomy Cardiac History: NM, HTN, Hyperlipidemia, Cardiac Surgery (CABG X3) Pulmonary History: COPD FRONT DESK REPRESENTATIVE History: Denies Any Significant HX Other Medical History: Denies Any Significant HX Alcohol Use: none Drug use: none Medications and Allergies Aspirin [Lo-Dose Aspirin EC] 81 mg PO DAILY 10/15/17 [History] Atorvastatin [Lipitor] 40 mg PO HS 10/15/17 [History] Metoprolol [Lopressor] 25 mg PO DAILY 10/15/17 [History] 3 Allergy/AdvReac Type Severity Reaction Status Date / Time No Known Allergies Allergy Verified 10/15/17 07:28 - Meds/Allergy Pre-op Review Medications Reviewed: Yes Allergies Reviewed: Yes Beta Blockers on Current Med List: Yes (Metoprolol today 0900) Anesthesia Results - Labs 10/16/17 06:49 10/16/17 06:49 - Imaging EKG: report reviewed (SR) Anesthesia Exam O2 Sat Weight 63.775 kg O2 Sat by Pulse Oximetry 96 O2 Sat by Pulse Oximetry 96 O2 Sat by Pulse Oximetry 98 O2 Sat by Pulse Oximetry 96 O2 Sat by Pulse Oximetry 96 O2 Sat by Pulse Oximetry 97 Vital Signs Temp Pulse Resp BP Pulse Ox 97.8 F 85 16 170/87 98 10/15/17 07:29 10/15/17 07:29 10/15/17 07:29 10/15/17 07:29 10/15/17 07:29 Height: 5'11 Weight: 140 lbs NPO (# of Hours): MN Pain Scale: 0 - HEENT Pupil (Motor): Pupils equal, EOMI Mallampati: III Teeth: Edentulous Oral Opening: Greater than 3 - FRONT DESK REPRESENTATIVE LOC: Oriented FRONT DESK REPRESENTATIVE Motor: Normal RUE, Normal LUE, Normal RLE, Normal LLE, Normal Face FRONT DESK REPRESENTATIVE Sensory: Normal: RUE, LUE, RLE, LLE, Face - Cardiac Rhythm: Regular Murmur: None JVD: No Carotid Bruit: No - Pulmonary Breath Sounds: bilateral Clear Respiratory Effort: Symmetrical Anesthesia Assess/Plan ASA Score: 3 (CAD HTN COPD) Modified [place] Scale for Level of Consciousness: Cooperative, oriented, and tranquil Anesthetic Plan: General Monitoring Plan: Standard Monitors Recovery Plan: PACU (Discussed GA, agrees to proceed)
[2017-10-16] MEDS ORDERED: Dexamethasone 4 MG/ML VIAL ONE (17:02)
[2017-10-16] MEDS ORDERED: Ondansetron 4 MG/2 ML VIAL ONE (17:02)
[2017-10-16] MEDS ORDERED: Lidocaine -MPF 2% 2 ML VIAL ONE (17:02)
[2017-10-16] MEDS ORDERED: Ketorolac 30 MG/ML VIAL ONE (17:02)
[2017-10-17] MEDS: Ampicillin/Sulbactam 3,000 MG in 0.9 % Sodium Chloride Mini Bag 100 ML IVPB SCH ×4 (04:20→23:18)
[2017-10-17 05:48] LABS: Basophils % 0.8 %; Eosinophils % 38.4 %; Hematocrit 38.2 % (37.5-50.1); Hemoglobin 12.5 g/dL (12.9-16.9); Lymphocytes # 0.9 K/mcL (0.6-4.6); Lymphocytes % 16.7 %; Mean Corpuscular HGB Conc 32.7 g/dL (31.6-35.5); Mean Corpuscular Hemoglobin 31.3 pg (28.0-33.3); Mean Corpuscular Volume 95.7 fL (83.0-100.0); Mean Platelet Volume 9.9 fL (9.4-12.4); Monocytes # 0.4 K/mcL (0.0-1.3); Monocytes % 7.3 %; Neutrophils # 1.9 K/mcL (1.6-8.9); Platelet Count 122 K/mcL (140-400); Red Blood Count 3.99 M/mcL (4.19-5.50); Red Cell Distribution Width 13.8 % (11.5-14.5); Segmented Neutrophils % 36.8 %
[2017-10-17 06:15] LABS: Albumin 3.5 g/dL (3.5-5.7); Albumin/Globulin Ratio 1.3 (1.1-2.2); Bilirubin,Direct 0.3 mg/dL (0.0-0.2); Bilirubin,Indirect 0.7 mg/dL (0.0-1.2); Globulin 2.8 g/dL (2.4-3.5); Total Protein 6.3 g/dL (6.4-8.9)
[2017-10-17 06:17] LABS: Alanine Aminotransferase 341 Units/L (7-52); Albumin 3.6 g/dL (3.5-5.7); Albumin/Globulin Ratio 1.3 (1.1-2.2); Alkaline Phosphatase 111 Units/L (34-104); Aspartate Amino Transferase 151 Units/L (13-39); BUN/Creatinine Ratio 16 (6-26); Blood Urea Nitrogen 12 mg/dL (8-23); Carbon Dioxide 26 mEq/L (23-29); Chloride 109 mEq/L (98-107); Globulin 2.8 g/dL (2.4-3.5); Glucose 98 mg/dL (70-105); Lipase 26 Units/L (11-82); Osmolality,Calculated 290 (280-300); Potassium 3.6 mEq/L (3.5-5.1); Sodium 140 mEq/L (136-145); Total Protein 6.4 g/dL (6.4-8.9); eGFR For African Americans > 60 (> 60); eGFR For Non-African Americans > 60 (> 60)
--- NOTE | 2017-10-17 07:23 | Event Note ---
Date of Encounter: 10/16/17 Time of Encounter: 17:35 The patient became quite agitated while waiting for surgery. I long discussion with him he decided to cancel surgery last night. He is going to consider surgery for today. I also discussed the options with his family. His family will was fairly exasperated at his anxiety and anger. He tried to discuss with him but he was not listening. At this point I will follow up with the patient on 10/17/17 to determine if he would like to proceed with an operation or not.
[2017-10-17 07:35] LABS: Platelet Estimate Slight Decrease (Normal)
--- NOTE | 2017-10-17 07:38 | Electrocardiograph Report ---
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
[2017-10-17] MEDS: Aspirin Enteric Coated 81 MG Tablet PO SCH (08:58)
--- NOTE | 2017-10-17 12:14 | Internal Med Progress Note ---
Date of Encounter: 10/17/17 Time of Encounter: 12:11 - Assessment and plan (1) Abdominal pain Current Visit: Yes Status: Acute Assessment and plan: Likely secondary to cholecystitis diagnosis acute gallstone pancreatitis He remains nothing by mouth for the OR, OR was scheduled last night and after 4 hours of being held preop area he refused surgery and came back down stairs. He is an add-on today and will be done after 2:00. Continue fentanyl and Toradol for pain as needed Continue IV fluids Unasyn IV Dr. Hale lens matcher does not plan to do an ERCP and actually notified the surgeon that the patient needed surgery He has been hemodynamically stable with stable vital signs Qualifiers: Abdominal location: right upper quadrant Qualified Code(s): R10.11 - Right upper quadrant pain (2) Choledocholithiasis Current Visit: Yes Status: Acute Assessment and plan: Ultrasound showed possible stone in the common bile duct with associated elevated liver and pancreatic enzymes. GI was called and will not do an ERCP. They notified general surgery that he needed to have a cholecystectomy. That has been planned for today (3) Pancreatitis Current Visit: Yes Status: Acute Assessment and plan: Remains nothing by mouth for the OR Continue current pain management Cholecystectomy later today Labs are trending down Qualifiers: Chronicity: acute Pancreatitis type: biliary Acute pancreatitis complication: unspecified Qualified Code(s): K85.10 - Biliary acute pancreatitis without necrosis or infection (4) CAD (coronary artery disease) Current Visit: No Status: Chronic Assessment and plan: Continue aspirin on discharge for hold statin secondary to elevated liver enzymes but continue the beta chuck Qualifiers: Coronary Disease-Associated Artery/Lesion type: [place] artery [place] vs. transplanted heart: [place] heart Associated angina: without angina Qualified Code(s): I25.10 - Atherosclerotic heart disease of [place] coronary artery without angina pectoris (5) DVT prophylaxis Current Visit: Yes Status: Acute Assessment and plan: Continue scds - Subjective Interval history: Patient is lying in the bed in no distress. He was embarrassed and very apologetic about his outburst in preop area last night. He stated he just felt so bad and wanted to apologize again I gave her motions support and told it was not necessary. He is scheduled for the OR later today, he will be an add-on. He is 87 years old and will need to be watched overnight. He denies any complaints at this time. His chest pain, fever, chills, abdominal pain, headache, syncope or changes in bowel or bladder. - Constitutional Vitals: Temp Pulse Resp BP Pulse Ox 97.5 F L 55 16 144/76 99 10/17/17 11:50 10/17/17 11:50 10/17/17 11:50 10/17/17 11:50 10/17/17 11:50 General appearance: Present: cooperative, A&O X 3, pleasant, no acute distress, underweight - Head Head exam: Present: atraumatic, normocephalic - Eye Eye exam: Present: PERRL, conjuntiva pink, sclera anicteric Pupils: Present: PERRL - Neck Neck exam general surgery: Present: supple, trachea midline. Absent: lymphadenopathy - Respiratory Respiratory exam: Present: CTAB. Absent: accessory muscle use, rales, rhonchi, wheezes - Cardiovascular Cardiovascular exam: Present: RRR, +S1, +S2. Absent: diastolic murmur, gallop, rubs, systolic murmur - GI/Abdominal GI/Abdominal exam: Present: normal bowel sounds, soft, no peritoneal signs. Absent: distended, tenderness - Extremities Exam Extremities exam: Present: warm, radial pulses palpable and symmetrical. Absent : calf tenderness, cyanotic, pedal edema - Neurological Exam Neurological exam: Present: CN II-XII intact, oriented X3, no focal deficits. Absent: pronater drift, facial droop, speech deficit - Skin Skin exam: Present: dry, intact, warm Internal Medicine: Result - Labs CBC & Chem 7: 10/17/17 04:47 10/17/17 04:47 Labs: Short CBC 10/17/17 Range/Units 04:47 WBC 5.1 (4.3-11.1) K/mcL Hgb 12.5 L (12.9-16.9) g/dL Hct 38.2 (37.5-50.1) % Plt Count 122 L (140-400) K/mcL Neutrophils # 1.9 (1.6-8.9) K/mcL BMP 10/17/17 04:47 Sodium 140 Potassium 3.6 Chloride 109 H Carbon Dioxide 26 BUN 12 Creatinine 0.75 Glucose 98 Calcium 9.0 Liver Function 10/17/17 10/17/17 Range/Units 04:47 04:47 Total Bilirubin 1.0 1.0 (0.3-1.0) mg/dL Direct Bilirubin 0.3 H (0.0-0.2) mg/dL AST 151 H 151 H (13-39) Units/L ALT 341 H 343 H (7-52) Units/L Alkaline Phosphatase 111 H 109 H (34-104) Units/L Albumin 3.6 3.5 (3.5-5.7) g/dL - ABG Interpretation ABG results: PT/INR, D-dimer PT 11.3 Seconds (9.4-12.1) 10/15/17 08:11 Consult Discharge Plan - Plan Referrals: Francy Martinez MD [Primary Care Provider] -
[2017-10-17] MEDS ORDERED: *HR* FentaNYL (PF) 100 MCG/2 ML VIAL ONE (14:01)
[2017-10-17] MEDS ORDERED: *HR* Propofol 200 MG/20 ML VIAL IVP ONE (14:01)
[2017-10-17] MEDS ORDERED: Isovue-300 50 ML VIAL IVP ONE (14:22)
[2017-10-17] MEDS ORDERED: CefOXitin 2,000 MG VIAL ONE (14:48)
[2017-10-17] MEDS ORDERED: *HR* OxyCODONE Immed Rel 5 MG TABLET PO PRN ×2 (14:53→16:24)
[2017-10-17] MEDS ORDERED: Ondansetron 4 MG/2 ML VIAL IVP ONE ×2 (14:53→16:24)
--- NOTE | 2017-10-17 15:12 | Operative Note ---
Date of procedure: 10/17/17 Pre-op diagnosis: Gallstone pancreatitis Post-op diagnosis: same Procedure: Laparoscopic cholecystectomy with cholangiogram Anesthesia: ASHLEY Surgeon: Roel Singh Was there an stonecutter assistant present: No Estimated blood loss (cc): 10 Specimen: Gallbladder Condition: stable Disposition: floor Procedure in Detail: After informed consent the patient was taken to the operating room. After adequate sedation anesthesia the abdomen was prepped and draped. A proper timeout was performed. Two towel clamps to place the umbilicus. A varies needle was placed at the umbilicus and a pneumo-peritoneum was created. A 5 mm incision was made at the umbilicus and a port was placed under direct visualization. An 12 mm incision was created in the left upper quadrant, followed by one in the right upper quadrant. There were 2 individual 5 mm cannulas then placed agrees incisions. An additional 5 mm cannula was created in the right lower quadrant. A alligator clamp was then placed on the gallbladder was retracted anteriorly and cephalad. . A grasper and hook were placed the patients abdomen. The infundibulum of the gallbladder was identified and the cystic duct was skeletonized. A cholangiogram was performed and revealed flow into the doudenum and common hepatic duct. Once the structures were identified the cystic duct was clipped twice proximally and once distally. Cystic duct was then transected. The gallbladder was then resected off the liver surface. Once the gallbladder was fully resected from the liver surface, the liver was gently irrigated and suctioned dry. We ensured hemostasis prior to removing the gallbladder through the subxiphoid port. Pneumoperitoneum was then evacuated. The 12 mm cannula site was closed with a 0-Vicryl suture in [id number] fashion. The port sites were injected with half percent Marcaine 30 mL. The skin was closed with 4-0 Vicryl suture and Dermabond. All instrument counts and needle counts were correct at the end of the case. The pt was taken to recovery in stable condition.
[2017-10-17] MEDS ORDERED: Ketorolac 15 MG/ML VIAL IVP PRN (16:24)
[2017-10-17] MEDS ORDERED: 0.9 % Sodium Chloride 1,000 ML IVC SCH (16:24)
[2017-10-17] MEDS ORDERED: *HR* FentaNYL (PF) 100 MCG/2 ML VIAL IVP PRN (16:24)
--- NOTE | 2017-10-17 17:30 | Electrocardiograph Report ---
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
[2017-10-17] MEDS: 0.9 % Sodium Chloride 1,000 ML IVC SCH (18:08)
[2017-10-17] MEDS ORDERED: Ibuprofen 600 MG TABLET PO PRN (21:30)
--- NOTE | 2017-10-17 22:23 | Gastroenterology Consult Note ---
Date of Encounter: 10/17/17 Time of Encounter: 14:00 - Assessment and plan (1) Gall stone pancreatitis Current Visit: Yes Status: Acute Assessment and plan: Pt with GS pancreatitis with mildly abn lFTS and dilated CBD with ?CBD stone. Currently pt pain free and no sign of cholangitis. Rec: Pain control, IV fluids, clear as pt with no abd pain. Rec GB surgery with IOC and if abn then ERCP - Time Spent With Patient Total time spent is greater than 50% in coordination of care (as documented) at patient's floor/unit and/or counseling patient: GI History of Present Illness - Data of Consult Consult date: 10/15/17 Requesting Physician: Alanna Fernandez CNP - Consult Narrative Reason for consult: GS pancreatitis History of present illness: Mr. Cisneros is a 87 year old male admitted with abd pain, found to have elevated LFTS and amylase/lipase and mildly dilated CBD. Pt with CAD s/p 3vCABG, COPD and HTN who presnted in the ER this am c.o RUQ and epigastric abdominal pain with Nausea nut no vomiting. He states that he had a spicy meal last evening and woke up with the pain described above. His liver and pancreatic enzymes are significantly elevated and a RUQ U/S shows what appears to be a possible stone in the CBD. Currently on floor , pt is pain free and wants to eat. Past Med Surg Social Fam HX - Past Medical History Medical history: cancer, hyperlipidemia, hypertension, myocardial infarction, renal disease, other Psychiatric history: no psych history - Social History Smoking Status: Never smoker Smokeless Tobacco Status: No Alcohol use: none Drug use: none - Family History Father Age at : 89 Cause of : natural causes Hx Family Cardiac Disorders: Yes Mother Age at : 60 Cause of : Heart attack Review of Systems: GI: as per AGDAAGUX GENERAL: denies fever, EYES: denies yellow discoloration ENT: denies pain with swallowing or difficulty swallowing CARDIO: denies chest pain, palpitations RESP: No Shortness of breath with exertion : denies change in color of urine NEURO: denies any weakness HEME: Denies any bruising MS: denies joint pain, joint swelling or back pain. DERM: denies rash or itching PSYCH: Denies history of anxiety or depression - Constitutional Vitals: Temp Pulse Resp BP Pulse Ox 97.8 F 73 14 155/77 97 10/17/17 19:14 10/17/17 19:14 10/17/17 19:14 10/17/17 19:14 10/17/17 19:14 Exam: CONSTITUTIONAL:~alert, no acute distress.~HEAD:~normocephalic.~EYES:~no jaundice.~NECK:~no obvious swelling.~HEART:~regular rate and rhythm, no murmurs. Old central scar of CABG~LUNGS:~bilateral good air entry.~ABDOMEN:~non distended, soft, mild upper tander, no masses pulpable, no organomegaly.~RECTAL EXAM:~Deferred.~EXTREMITIES:~no clubbing, cyanosis or edema.~SKIN:~no stigmata of chronic liver disease.~NEUROLOGIC:~no obvious focal defect Results - Labs CBC & Chem 7: 10/17/17 04:47 10/17/17 04:47 Labs: Last Result Calcium 9.0 mg/dL (8.6-10.3) 10/17/17 04:47 Troponin I < 0.03 ng/mL (< 0.04) 10/15/17 08:11 Entire Visit Hgb 12.5 g/dL (12.9-16.9) L 10/17/17 04:47 Hct 38.2 % (37.5-50.1) 10/17/17 04:47 PT 11.3 Seconds (9.4-12.1) 10/15/17 08:11 Total Bilirubin 1.0 mg/dL (0.3-1.0) 10/17/17 04:47 AST 151 Units/L (13-39) H 10/17/17 04:47 ALT 341 Units/L (7-52) H 10/17/17 04:47 Amylase 54 Units/L (29-103) 10/17/17 04:47 Lipase 26 Units/L (11-82) 10/17/17 04:47 - ABG ABG results: PT/INR, D-dimer PT 11.3 Seconds (9.4-12.1) 10/15/17 08:11 - Impressions Impressions Cholangiogram,Operative 10/17/17 14:55 IMPRESSION: Intraoperative fluoroscopy provided. Please see procedure notes for further details. D/ / Sony Morales MD / Sony Morales MD Interpreting Provider: Sony Morales MD Consult Discharge Plan - Plan Referrals: Francy Martinez MD [Primary Care Provider] -
[2017-10-18] MEDS: Ampicillin/Sulbactam 3,000 MG in 0.9 % Sodium Chloride Mini Bag 100 ML IVPB SCH ×2 (04:31→11:13)
[2017-10-18] MEDS ORDERED: Aspirin Enteric Coated 81 MG Tablet PO SCH (09:00)
--- NOTE | 2017-10-18 11:39 | General Surgery Progress Note ---
Date of Encounter: 10/18/17 Time of Encounter: 11:37 - Assessment and Plan (1) Gall stone pancreatitis Current Visit: Yes Status: Acute Date of procedure: 10/17/17 Pre-op diagnosis: Gallstone pancreatitis Post-op diagnosis: same Procedure: Laparoscopic cholecystectomy with cholangiogram Anesthesia: ASHLEY Surgeon: Roel Singh POD#1 as above. This abdominal exam is overall benign. He states he has no discomfort just some soreness for which he has accepted some Tylenol but has refused other pain medication. He is ambulating and voiding without difficulty. He states he is passing gas. He is not a bowel movement. His afebrile and his vital signs are stable. His incisions are clean, dry, and intact. Plan: okay to DC from the surgical perspective. Follow-up and instructions per DC plan. I did not give patient narcotic coverage or stool softeners as he refuses narcotic pain medication at this time. Okay to take [id number] Tylenol and ibuprofen as needed for discomfort. Subjective Patient reports: no new complaints, feels better, still having pain, pain is less, tolerating a regular diet, flatus, no bowel movement, afebrile Objective Vital Signs - Last 8 Hours Temp Pulse Resp BP Pulse Ox 10/18/17 07:41 98.3 F 62 16 149/76 98 10/18/17 03:55 98.4 F 75 14 154/71 98 Intake and Output 10/17/17 10/18/17 10/18/17 23:59 07:59 15:59 Intake Total 400 / 400 100 / 100 720 / 720 Output Total 600 / 600 Balance -200 / -200 100 / 100 720 / 720 Intake: IV Fluids 200 / 200 100 / 100 Unasyn 3,000 MG In 0.9 % Sodium 200 / 200 100 / 100 Chloride (Mini-Bag +) 100 ML @ 200 mls/hr IVPB Q6H [facility] Rx#: [id number] Oral 200 / 200 720 / 720 Output: Urine 600 / 600 Other: Meal Breakfast Percent of Meal Consumed 100% Weight 64.093 kg Patient Weight 10/18/17 23:59 Weight 64.093 kg - General physical appearance no distress, no pain - Eyes normal ocular movement - ENT atraumatic, normocephalic - Neck Neck exam: trachea midline, no venous distension - Respiratory normal expansion, normal respiratory effort, clear to auscultation - Cardiovascular Cardiovascular exam: Present: RRR - Abdomen Abdomen: Present: bowel sounds present, soft, tender (Expected postoperative) Hernia: none - Incision Incision: Present: clean and dry, intact - Integumentary no abnormal pigmentation - Neurologic normal sensation, other (Currently patient is agitated. He states he wants to be DC.) - Musculoskeletal normal posture - Psychiatric oriented to time, oriented to person, oriented to place, speech is normal, memory intact, other (See above) - Labs 10/17/17 04:47 10/17/17 04:47 - VTE Documentation of Mechanical Device: Intermittent pneumatic compression device Consult Discharge Plan - Plan Instructions: Laparoscopic Cholecystectomy (DC) Additional Instructions: General Surgical Discharge Instructions 1. No pushing, pulling, or lifting greater than 15 lbs for 2-4 weeks (depending upon procedure). 2. You may shower beginning today, but no tub baths, soaking, or swimming for 2 weeks. 3. You may resume driving when you are off narcotics and are safe to react in a car. 4. Take ibuprofen every 8 hours for discomfort. If this does not relieve discomfort, you may take Tylenol. 5. Report any fevers greater than 100.5F, increase abdominal discomfort, drainage that looks like pus, increased redness or pain at the surgical site, or any vomiting. 7. Report any pain in the calves, shortness of breath, or rapid heartbeat. 8. Follow-up in the office as directed. 9. If you were prescribed antibiotics, do not stop them without talking to your provider. Referrals: Francy Martinez MD [Primary Care Provider] - Roel Singh DO [Partnered Physician] - 11/01/17 9:00 am
[2017-10-18 11:59] VITALS: BP 164/89
--- NOTE | 2017-10-18 12:59 | Discharge Summary ---
Date of Encounter: 10/18/17 Time of Encounter: 12:05 - Discharge Diagnosis (1) Abdominal pain Priority: Secondary Status: Acute Comments: Abdominal pain secondary to cholecystitis, choledocholithiasis. Abdominal pain has resolved. Abdomen is soft and nontender to palpation, bowel sounds are present. Puncture wounds from surgery are intact without drainage or bleeding. He is able to tolerate regular diet without problems. We will send home prescription for Colace. He reports that he has not had a bowel movement since immediately prior to surgery. Surgery has signed off. Qualifiers: Abdominal location: right upper quadrant Qualified Code(s): R10.11 - Right upper quadrant pain (2) DVT prophylaxis Priority: Secondary Status: Acute Comments: Pt has been ambulatory. (3) Gall stone pancreatitis Priority: Secondary Status: Acute Comments: Gallstone pancreatitis with mildly abnormal LFTs and dilated common bile duct with questionable stone. Patient had laparoscopic cholecystectomy with cholangiogram on 10/17/17. Abdomen as above. Patient is ambulating and voiding without difficulty, he is passing gas. No bowel movement as of yet, will send home with prescription for Colace daily. Surgery has evaluated patient and have signed off. [id number] Tylenol and ibuprofen as needed for discomfort. (4) Pancreatitis Priority: Secondary Status: Acute Comments: Plan as above. Qualifiers: Chronicity: acute Pancreatitis type: biliary Acute pancreatitis complication: unspecified Qualified Code(s): K85.10 - Biliary acute pancreatitis without necrosis or infection (5) CAD (coronary artery disease) Priority: Secondary Status: Chronic Comments: Patient denies chest pain. After discharge continue aspirin, statin, beta chuck. Qualifiers: Coronary Disease-Associated Artery/Lesion type: [place] artery [place] vs. transplanted heart: [place] heart Associated angina: without angina Qualified Code(s): I25.10 - Atherosclerotic heart disease of [place] coronary artery without angina pectoris - Discharge Medications Prescriptions: Docusate [Colace] 100 mg PO BID PRN #30 capsule PRN Reason: Constipation Home Medications: Aspirin [Lo-Dose Aspirin EC] 81 mg PO DAILY 10/15/17 [History] Atorvastatin [Lipitor] 40 mg PO HS 10/15/17 [History] Metoprolol [Lopressor] 25 mg PO DAILY 10/15/17 [History] Docusate [Colace] 100 mg PO BID PRN #30 capsule 10/18/17 [Rx] Ibuprofen [Motrin] 600 mg PO Q6HR PRN tablet 10/18/17 [Rx] Allergies/Adverse Reactions: 3 Allergy/AdvReac Type Severity Reaction Status Date / Time No Known Allergies Allergy Verified 10/15/17 07:28 Procedures/tests Complete & Pending: Procedures Performed prior 72 hours Category Date Time Status ECG 12 lead ECG [ECG] Routine Y 10/16/17 11:51 Completed Date of admission: 10/15/17 13:10 Primary care physician: Francy Martinez Consults: 10/16/17 09:47 Consult to Surgery [CONS] Routine Consulting Provider: [facility] Reason for Consult: Possible juli Call Completed: Yes Discharging clinician: Jagruti Cheatham Anticipated date of discharge: 10/18/17 - Patient Status Disposition: Home, Self-Care Condition: Good Functional capacity at discharge: independent ambulation Overall status at discharge: patient is progressing back to baseline - Discharge Instructions Instructions: Laparoscopic Cholecystectomy (DC) Follow Up With: Roel Singh DO [Partnered Physician] - 11/01/17 9:00 am Francy Martinez MD [Primary Care Provider] - Additional Instructions: General Surgical Discharge Instructions 1. No pushing, pulling, or lifting greater than 15 lbs for 2-4 weeks (depending upon procedure). 2. You may shower beginning today, but no tub baths, soaking, or swimming for 2 weeks. 3. You may resume driving when you are off narcotics and are safe to react in a car. 4. Take ibuprofen every 8 hours for discomfort. If this does not relieve discomfort, you may take Tylenol. 5. Report any fevers greater than 100.5F, increase abdominal discomfort, drainage that looks like pus, increased redness or pain at the surgical site, or any vomiting. 7. Report any pain in the calves, shortness of breath, or rapid heartbeat. 8. Follow-up in the office as directed. 9. If you were prescribed antibiotics, do not stop them without talking to your provider. - Diet and Activity Activity: increase activity as tolerated Diet: advance to your usual diet Hospital course: Mr. Cisneros is a 87 year old male with PMH of pancreatitis, CAD. He presented with abdominal pain and questionable CBD stone/choledocholithiasis. Pt underwent a lap juli by Dr. Singh on 10/17 and remains without complications. Please see assessment and plan for hospital course. Pt's labs are stable and WNL , as are his vital signs. He denies pain and abd assessment is unremarkable. He is stable and ready for discharge. - Time Spent with Patient Total time spent providing and/or coordinating discharge services: Less than 30 minutes - Constitutional Vitals: Temp Pulse Resp BP Pulse Ox 97.7 F 91 14 164/89 96 10/18/17 11:51 10/18/17 11:51 10/18/17 11:51 10/18/17 11:51 10/18/17 11:51 General appearance: Present: cooperative, A&O X 3, pleasant, no acute distress, underweight, answers questions appropriately - Head Head exam: Present: atraumatic, normal inspection, normocephalic - Eye Eye exam: Present: normal appearance, conjuntiva pink, sclera anicteric - Neck Neck exam general surgery: Present: supple, trachea midline. Absent: lymphadenopathy, tenderness - Respiratory Respiratory exam: Present: CTAB. Absent: accessory muscle use, chest wall tenderness, rales, rhonchi, wheezes - Cardiovascular Cardiovascular exam: Present: RRR, +S1, +S2. Absent: diastolic murmur, gallop, rubs, systolic murmur - GI/Abdominal GI/Abdominal exam: Present: normal bowel sounds, soft. Absent: diminished bowel sounds, distended, hepatomegaly, tenderness - Extremities Exam Extremities exam: Present: normal capillary refill, normal inspection, warm, radial pulses palpable and symmetrical. Absent: calf tenderness, cyanotic, pedal edema, tenderness - Neurological Exam Neurological exam: Present: alert, oriented X3, no focal deficits. Absent: facial droop, speech deficit - Skin Skin exam: Present: dry, intact, normal color, warm. Absent: rash - VTE Documentation of Mechanical Device: Intermittent pneumatic compression device
== END 2017-10-18 14:56 | disposition home or self-care (01) | DRG 418 ==
LOC: EMEROO 07:28 → 3BNU 07:28
PROVIDERS: ADMIT Internal Medicine Cardiovascular Disease; ATTEND Registered Nurse

== ENCOUNTER 2021-01-16 11:50 | Observation (INO) ==
[2021-01-16 12:54] LABS: BUN/Creatinine Ratio 16 (6-26); Blood Urea Nitrogen 15 mg/dL (8-23); Calcium 9.3 mg/dL (8.6-10.3); Carbon Dioxide 27 mEq/L (23-29); Chloride 102 mEq/L (98-107); Glucose 98 mg/dL (70-105); Osmolality,Calculated 281 (280-300); Sodium 135 mEq/L (136-145); eGFR For African Americans > 60 (> 60); eGFR For Non-African Americans > 60 (> 60)
[2021-01-16 12:55] LABS: Troponin I < 0.03 ng/mL (< 0.04)
[2021-01-16] MEDS ORDERED: cefTRIAXone 1,000 MG in Water for inj. (sterile) 10 ML IVP ONE (12:57)
[2021-01-16] MEDS ORDERED: Azithromycin 500 MG in D5% in Water 250 ML IVPB STA (13:04)
[2021-01-16 13:45] LABS: Basophils # 0.1 K/mcL (0.0-0.2); Basophils % 0.5 %; Eosinophils # 0.6 K/mcL (0.0-0.6); Eosinophils % 5.8 %; Hematocrit 35.5 % (37.5-50.1); Hemoglobin 11.4 g/dL (12.9-16.9); Immature Granulocytes % 0.4 % (0-4); Lymphocytes % 10.9 %; Mean Corpuscular HGB Conc 32.1 g/dL (31.6-35.5); Mean Corpuscular Hemoglobin 30.8 pg (28.0-33.3); Mean Corpuscular Volume 95.9 fL (83.0-100.0); Mean Platelet Volume 8.4 fL (9.4-12.4); Monocytes # 0.7 K/mcL (0.0-1.3); Monocytes % 6.8 %; Neutrophils # 7.2 K/mcL (1.6-8.9); Platelet Count 472 K/mcL (140-400); Red Cell Distribution Width 13.3 % (11.5-14.5); Segmented Neutrophils % 75.6 %; White Blood Count 9.6 K/mcL (4.3-11.1)
[2021-01-16] MEDS ORDERED: Melatonin 3 MG TABLET PO PRN (15:48)
[2021-01-16] MEDS ORDERED: Ondansetron 4 MG/2 ML VIAL IVP PRN (15:48)
[2021-01-16] MEDS ORDERED: Naloxone 0.4 MG/ML INJ IVP PRN (15:48)
[2021-01-16] MEDS ORDERED: Acetaminophen 325 MG TABLET PO PRN (15:48)
[2021-01-16] MEDS ORDERED: Ipratropium/Albuterol Neb 3 ML IH PRN (18:13)
[2021-01-16] MEDS: predniSONE 20 MG TABLET PO SCH (20:47)
[2021-01-16] MEDS: Ipratropium/Albuterol Neb 3 ML IH SCH (22:00)
[2021-01-17] MEDS: Ipratropium/Albuterol Neb 3 ML IH SCH ×2 (01:57→08:39)
[2021-01-17] MEDS ORDERED: *HR* Enoxaparin 40 MG/0.4 ML SYRINGE SQ SCH (06:00)
[2021-01-17 06:13] LABS: Hematocrit 33.6 % (37.5-50.1); Hemoglobin 10.9 g/dL (12.9-16.9); Mean Corpuscular HGB Conc 32.4 g/dL (31.6-35.5); Mean Corpuscular Hemoglobin 30.6 pg (28.0-33.3); Mean Corpuscular Volume 94.4 fL (83.0-100.0); Mean Platelet Volume 8.3 fL (9.4-12.4); Platelet Count 473 K/mcL (140-400); Red Blood Count 3.56 M/mcL (4.19-5.50); Red Cell Distribution Width 13.5 % (11.5-14.5); White Blood Count 9.3 K/mcL (4.3-11.1)
[2021-01-17 06:35] LABS: BUN/Creatinine Ratio 20 (6-26); Blood Urea Nitrogen 18 mg/dL (8-23); Calcium 9.2 mg/dL (8.6-10.3); Carbon Dioxide 27 mEq/L (23-29); Chloride 101 mEq/L (98-107); Glucose 147 mg/dL (70-105); Magnesium 2.1 mg/dL (1.6-2.6); Osmolality,Calculated 283 (280-300); Phosphorous 2.8 mg/dL (2.7-4.5); Potassium 3.9 mEq/L (3.5-5.1); Sodium 134 mEq/L (136-145); eGFR For African Americans > 60 (> 60); eGFR For Non-African Americans > 60 (> 60)
[2021-01-17 06:53] VITALS: BP 113/66
[2021-01-17] MEDS: predniSONE 20 MG TABLET PO SCH (08:34)
[2021-01-17] MEDS ORDERED: Aspirin Enteric Coated 81 MG Tablet PO SCH (09:00)
[2021-01-17] MEDS ORDERED: Cefdinir 300 MG CAPSULE PO SCH (09:00)
[2021-01-17] MEDS ORDERED: Azithromycin 250 MG TABLET PO SCH (09:00)
== END 2021-01-17 12:05 | disposition home or self-care (01) ==
LOC: EMEROOARM 11:50 → 3ANU 11:50 → SUATTDRO 15:00 → 3ANU 16:16
PROVIDERS: ADMIT Internal Medicine; ATTEND Internal Medicine